=== PATIENT | female | born 2005 | race Caucasian/White ===

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

== ENCOUNTER 2023-04-08 23:37 | Emergency (ER) | payer MEDICAID ==
[~2023-04-08] VITALS: Ht 157.5 cm; Wt 59.1 kg
[2023-04-08 23:50] VITALS: BP 122/77; PULSE 116; RESP 16; TEMP 99.3; O2SAT 98
[2023-04-09 01:11] LABS: STREP A SCREEN NEGATIVE (Neg)
[2023-04-09] MEDS ORDERED: methylPREDNISolone sod succ 125mg/2ml vial IM ONE (01:15)
[2023-04-09] MEDS ORDERED: AMOX-117 PO (01:17)
== END 2023-04-09 01:38 | disposition home or self-care (01) ==
LOC: ER 23:37
DX: J02.9 Acute pharyngitis, unspecified (principal); Z79.899 Other long term (current) drug therapy
CPT/HCPCS: 87081; 87880; 96372; 99283; J2930; 99285

== ENCOUNTER 2023-04-26 11:23 | Emergency (ER) | payer MEDICAID ==
[~2023-04-26] VITALS: Ht 157.5 cm; Wt 63.6 kg
[2023-04-26 11:25] VITALS: TEMP 98.6
[2023-04-26] MEDS ORDERED: dexamethasone sod phosphate 10mg/ml inj IV STA (13:43)
[2023-04-26] MEDS ORDERED: clindamycin-Cleocin 900mg/D5W 50 ML IV ONE (13:45)
[2023-04-26] MEDS ORDERED: iohexol 300mg/ml 100ml inj. ONE (14:05)
[2023-04-26 14:29] LABS: BASOPHILS % (AUTO) 0.2 % (0-1); EOSINOPHILS # (AUTO) 0.1 X10'3 (0-0.9); EOSINOPHILS % (AUTO) 0.4 % (0-6); HEMATOCRIT 41.6 % (35.0-45.0); HEMOGLOBIN 13.9 g/dl (12.0-16.0); LYMPHOCYTES # (AUTO) 1.5 X10'3 (1.1-4.8); LYMPHOCYTES % (AUTO) 10.3 % (21-51); MEAN CORPUSCULAR HEMOGLOBIN 29.2 PG (27.0-31.0); MEAN CORPUSCULAR HGB CONC 33.3 g/dL (33.0-36.5); MEAN CORPUSCULAR VOLUME 87.7 FL (78-98); MEAN PLATELET VOLUME 8.2 FL (7.4-10.4); MONOCYTES # (AUTO) 0.9 X10'3 (0-0.9); NEUTROPHILS # (AUTO) 12.1 X10'3 (1.8-7.7); NEUTROPHILS % (AUTO) 83.1 % (42-75); PLATELET COUNT 338 X10'3 (140-440); RED BLOOD COUNT 4.75 X10'6 (4.20-5.60); RED CELL DISTRIBUTION WIDTH 13.6 % (11.5-14.5); WHITE BLOOD COUNT 14.6 X10'3 (4.5-11.0)
[2023-04-26 14:30] VITALS: BP 101/73; PULSE 91; O2SAT 99
[2023-04-26 14:41] LABS: ALANINE AMINOTRANSFERASE 27 U/L (12-78); ALBUMIN 4.2 G/DL (3.4-5.0); ALBUMIN/GLOBULIN RATIO 0.9 (1.1-1.5); ALKALINE PHOSPHATASE 99 IU/L (20-180); ANION GAP 8 (8-16); ASPARTATE AMINO TRANSFERASE 21 U/L (10-37); BILIRUBIN,TOTAL 0.6 MG/DL (0.1-1.0); BLOOD UREA NITROGEN 7 MG/DL (7-18); BUN/CREATININE RATIO 10.9 (10.0-20.0); CHLORIDE 102 MMOL/L (99-107); CREATININE 0.64 MG/DL (0.40-0.90); GLUCOSE 95 MG/DL (70-104); LIPASE 51 U/L (73-393); SODIUM 136 MMOL/L (135-145); TOTAL CARBON DIOXIDE 26.2 MMOL/L (24-32); TOTAL PROTEIN 8.7 G/DL (6.4-8.2); eCRCL 111 ML/MIN; eGFR > 90 ML/MIN
[2023-04-26 15:03] LABS: CALCIUM 9.9 MG/DL (8.5-10.1)
[2023-04-26 15:15] LABS: URINE HCG NEGATIVE (NEG)
[2023-04-26] MEDS ORDERED: LIDOcaine 1% W/epiNEPHrine 1:100,000 20ml vial SQ ONE (17:45)
[2023-04-26] MEDS ORDERED: fentaNYL/PF 50MCG/1 ML 2ML syringe IV ONE (17:55)
[2023-04-26] MEDS ORDERED: PRED20TA PO (18:11)
[2023-04-26] MEDS ORDERED: CLIN150C2 PO (18:11)
[2023-04-26 18:14] VITALS: RESP 15
--- NOTE | 2023-04-26 19:11 | NUR ---
iv dc'd pt being discharged dressing applied
== END 2023-04-26 19:12 | disposition home or self-care (01) ==
LOC: ER 11:24
DX: J36 Peritonsillar abscess (principal); Z79.2 Long term (current) use of antibiotics; Z79.899 Other long term (current) drug therapy
CPT/HCPCS: 36415; 42700; 70491; 80053; 81025; 83690; 85025; 96365; 96375; 99285; J1100; J3010; J3490; Q9967; A6449